=== PATIENT | female | born 1955 | race Caucasian/White ===

== ENCOUNTER 2019-08-25 17:53 | Emergency (ER) | payer MEDICARE, OTHER ==
[~2019-08-25] VITALS: Ht 177.8 cm; Wt 83.9 kg
--- NOTE | 2019-08-25 18:00 | NUR ---
PT BIB SELF C/P L THUMB LACERATION. AAOX4, VSS, -SOB. DR CULLEN AT BEDSIDE FOR EVAL.
--- NOTE | 2019-08-25 18:02 | NUR ---
AT BEDSIDE FOR EVAL.
[2019-08-25] MEDS ORDERED: LIDOCAINE /MPF 1% VIAL 5 ML VIAL ONE (18:04)
--- NOTE | 2019-08-25 18:14 | NUR ---
SUTURING DONE BY .
[2019-08-25 18:27] VITALS: BP 121/84
--- NOTE | 2019-08-25 18:27 | NUR ---
Patient discharged to home in stable condition. Written and verbal after care instructions given. Patient verbalizes understanding of instruction.
[2019-08-25] MEDS ORDERED: LIDOCAINE 1% INJ 50 ML MDV IJ ONE (18:30)
[2019-08-25] MEDS ORDERED: TDAP [DIPH/PERTUSSIS/TET] 0.5 ML VIAL IM ONE (18:30)
== END 2019-08-25 18:29 | disposition home or self-care (01) ==
LOC: ER 18:00
DX: S61.012A Laceration without foreign body of left thumb without damage to nail, initial encounter (principal); E03.9 Hypothyroidism, unspecified; W25.XXXA Contact with sharp glass, initial encounter; Y93.89 Activity, other specified; Y92.89 Other specified places as the place of occurrence of the external cause; Y99.8 Other external cause status
CPT/HCPCS: 12001; 99283; J3490